=== PATIENT | female | born 1970 | race Hispanic/Latino ===

== ENCOUNTER 2023-07-14 16:24 | Emergency (ER) | payer OTHER ==
[~2023-07-14] VITALS: Ht 157.5 cm; Wt 89.4 kg
[2023-07-14 17:22] LABS: BASOPHILS # (AUTO) 0.1 (0.0-0.1); BASOPHILS % 0.6 % (0.0-1.0); HEMATOCRIT 47.4 % (34.2-44.1); HEMOGLOBIN 16.3 g/dL (12.0-16.0); LYMPHOCYTES # (AUTO) 1.2 (1.0-3.2); LYMPHOCYTES % 8.7 % (18.0-39.1); MEAN CORPUSCULAR HGB CONC 34.4 g/dL (31-35); MEAN CORPUSCULAR VOLUME 92.9 fL (81-99); MONOCYTES # (AUTO) 1.7 (0.2-0.8); MONOCYTES % 12.5 % (4.4-11.3); NEUTROPHILS # (AUTO) 10.1 (2.1-6.9); NEUTROPHILS % 76.8 % (38.7-80.0); PLATELET COUNT 318 x10e3/uL (140-360); RED CELL DISTRIBUTION WIDTH 12.4 % (11.7-14.4); WHITE BLOOD COUNT 13.19 x10e3/uL (4.8-10.8)
[2023-07-14 17:44] LABS: ALBUMIN 3.8 g/dL (3.5-5.0); ALBUMIN/GLOBULIN RATIO 0.8 (0.8-2.0); ANION GAP 26.2 mmol/L (8-16); BILIRUBIN,TOTAL 0.5 mg/dL (0.2-1.2); CALCIUM 10.5 mg/dL (8.4-10.2); CREATININE, SERUM 1.38 mg/dL (0.57-1.11); POTASSIUM 4.2 mmol/L (3.5-5.1); TOTAL PROTEIN 8.8 g/dL (6.5-8.1)
[2023-07-14] MEDS ORDERED: SODIUM CHLORIDE 0.9% 100 ML ONE (17:58)
[2023-07-14] MEDS ORDERED: IOPAMIDOL 370 MG/ML 100 ML INFUS..BTL INJ ONE (17:59)
[2023-07-14 18:09] LABS: ETHANOL < 10.0 mg/dL (0.0-10.0); SALICYLATE < 5.0 mg/dL (0-30)
[2023-07-14] MEDS: METOCLOPRAMIDE HCL 10 MG/2ML VIAL IV ONE (18:13)
[2023-07-14] MEDS: DIPHENHYDRAMINE HCL INJ 50 MG/ML VIAL IV ONE (18:13)
[2023-07-14] MEDS: SODIUM CHLORIDE 0.9% 1000ML 1,000 ML IV ONE ×2 (18:14→20:09)
[2023-07-14] MEDS: KETOROLAC TROMETHAMINE 30 MG/ML VIAL IV STA (18:14)
[2023-07-14 19:49] LABS: ABG PCO2 15 mmHg (35-45); ABG PH 7.08 (7.35-7.45); ABG PO2 112 mmHg (80-105)
[2023-07-14 19:50] LABS: ABG HCO3 5 mmol/L (22-26); ABG TCO2 5
[2023-07-14] MEDS: SODIUM CHLORIDE 0.9% 1000ML 1,000 ML IV STA (19:53)
[2023-07-14 21:07] LABS: BILIRUBIN,URINE SMALL (NEGATIVE); CLARITY,URINE SL CLOUDY (CLEAR); COLOR,URINE STRAW (YELLOW); GLUCOSE, URINE 500 (NEGATIVE); KETONES,URINE >=160 (NEGATIVE); LEUKOCYTE ESTERASE ,URINE NEGATIVE (NEGATIVE); NITRITE,URINE NEGATIVE (NEGATIVE); PH,URINE 5.5 (5 - 7); PROTEIN,URINE DIPSTICK 2+ (NEGATIVE); URINE UROBILINOGEN 0.2 mg/dL (0.2 - 1)
[2023-07-14] MEDS: SODIUM BICARBONATE 8.4% INJ 50 ML SYR IV STA (21:07)
[2023-07-14 21:17] LABS: BACTERIA,URINE MODERATE /HPF
[2023-07-14] MEDS: INSULIN REGULAR, HUMAN 3ML VL 100 UNIT in SODIUM CHLORIDE 0.9% 100 ML IV SCH (21:50)
[2023-07-14] MEDS: DEXTROSE 5%/0.45% SOD CHL 1,000 ML IV SCH (21:51)
[2023-07-14 22:00] VITALS: O2SAT 99
[2023-07-14] MEDS: LACTATED RINGER'S 1,000 ML INJ ONE (22:21)
== END 2023-07-15 00:09 | disposition other institution (70) ==
LOC: ER 16:30
DX: R51.9 Headache, unspecified (principal); E11.10 Type 2 diabetes mellitus with ketoacidosis without coma; E11.65 Type 2 diabetes mellitus with hyperglycemia; R00.0 Tachycardia, unspecified
CPT/HCPCS: 36415; 36600; 70496; 71045; 80053; 80320; 80329; 81001; 82010; 82805; 82948; 84702; 85025; 87400; 99284; J1200; J1885; J2765; J7030; J7050; Q9967; U0002